=== PATIENT | male | born 1955 ===

== ENCOUNTER 2025-05-09 08:52 | Outpatient (CLI) | payer MEDICARE, MEDICAID | END 2025-05-09 17:00 | disposition home or self-care (01) | LOC: Rad HDHVI 08:52 | PROVIDERS: ATTEND Internal Medicine Cardiovascular Disease | DX: I51.7 Cardiomegaly (principal) | CPT/HCPCS: 93306 ==

== ENCOUNTER 2025-05-14 08:17 | Outpatient (CLI) | payer MEDICARE, MEDICAID ==
[~2025-05-14] VITALS: Ht 175.3 cm; Wt 102.1 kg
[2025-05-14] MEDS ORDERED: ADENOSINE 90 MG/30 ML INJ IV ONE (08:46)
[2025-05-14] MEDS ORDERED: ADENOSINE 86 MG in GIVE UN-DILUTED 0 ML IV ONE (13:30)
== END 2025-05-14 17:00 | disposition home or self-care (01) ==
LOC: Rad HDHVI 08:17
PROVIDERS: ATTEND Internal Medicine Cardiovascular Disease
DX: I25.10 Atherosclerotic heart disease of native coronary artery without angina pectoris (principal); E11.9 Type 2 diabetes mellitus without complications; E78.00 Pure hypercholesterolemia, unspecified; I10 Essential (primary) hypertension; R06.00 Dyspnea, unspecified; I25.2 Old myocardial infarction
CPT/HCPCS: 78452; A9500; J0153; 93017